=== PATIENT | female | born 1945 | race Caucasian/White ===

== ENCOUNTER 2019-07-12 00:10 | Inpatient (IN) | payer OTHER, SELFPAY ==
[~2019-07-12] VITALS: Ht 154.9 cm; Wt 103.0 kg
[2019-07-12] VITALS (22 sets, daily range): BP systolic 99–220
[~2019-07-12 00:10] MED LIST: ALBU2.5V7 INH; GLU500 PO; IBUP800T54 PO; LEVO500T20 PO; POTA8CAP20 PO; PRED20TA PO; VIT1TABL67 PO; VIT1TABL94 PO
--- NOTE | 2019-07-12 00:15 | NUR ---
Placed in room 6 . Placed on monitoring analyst, blood pressure machine and pulse oximeter. To gown for exam. Side rails up.
--- NOTE | 2019-07-12 00:19 | NUR ---
Pt placed on hall monitor. Pt states, "I can't breathe." Pt appears to be diaphoretic and confused. Pts HR is [address] Cabrera states "this is vtach." ER MD called to bedside. Pt placed on cardiac pads, crash cart at bedside. O2 administered via simple mask. Charged to 150 joules per MD order. Pt shocked. Pt converted to sinus rhythym HR at 76. Pt states she, no longer feels chest pain."
--- NOTE | 2019-07-12 00:19 | NUR ---
Note jesicaone in ED - 07/12/19 at 0048 by [email or web address] Pt placed on case monitor. Pt states, "I can't breathe." Pt appears to be diaphoretic. Pts HR is [address] Cabrera states "this is vtach." ER MD called to bedside. Pt placed on cardiac pads, crash cart at bedside. O2 administered via simple mask. Charged to 150 joules per MD order. Pt shocked. Pt converted to sinus rhythym HR at 76. Pt states she, no longer feels chest pain."
[2019-07-12] MEDS ORDERED: MIDAZOLAM HCL 5 MG/5 ML VIAL ONE (00:36)
[2019-07-12] MEDS ORDERED: ASPIRIN 325 MG TABLET PO ONE (01:00)
--- NOTE | 2019-07-12 01:00 | NUR ---
PT RESTING COMFORTABLY AT THIS TIME IN NO DISTRESS.
[2019-07-12 01:12] LABS: BASOPHILS # (AUTO) 0.1 K/uL (0.0-0.2); BASOPHILS % (AUTO) 0.9 % (0.0-2.0); EOSINOPHILS # (AUTO) 0.2 K/uL (0.0-0.4); EOSINOPHILS % (AUTO) 1.9 % (0.0-4.0); HEMATOCRIT 41.5 % (36-48); HEMOGLOBIN 13.7 g/dL (12.0-16.0); LYMPHOCYTES # (AUTO) 2.1 K/uL (1.0-5.5); LYMPHOCYTES % (AUTO) 21.9 % (20.5-51.5); MEAN CORPUSCULAR HEMOGLOBIN 28 pg (27-31); MEAN CORPUSCULAR HGB CONC 33 % (32-36); MEAN CORPUSCULAR VOLUME 86 fL (79.0-98.0); MONOCYTES # (AUTO) 0.7 K/uL (0.0-1.0); MONOCYTES % (AUTO) 6.9 % (1.7-9.3); NEUTROPHILS # (AUTO) 6.7 K/uL (1.8-7.7); NEUTROPHILS % (AUTO) 68.4 % (40.0-70.0); PLATELET COUNT (AUTO) 192 K/uL (130-430); RED BLOOD CELL COUNT(AUTO) 4.83 MIL/uL (4.2-6.2); RED CELL DISTRIBUTION WIDTH 15.4 % (9.0-15.0); WHITE BLOOD COUNT (AUTO) 9.8 K/uL (4.8-10.8)
[2019-07-12 01:16] LABS: ANION GAP 7 (5-15); CALCIUM 8.9 mg/dL (8.4-11.0); CHLORIDE 102 mmol/L (98-107); CREATININE 1.21 mg/dL (0.55-1.30); GLUCOSE 215 mg/dL (70-99); SODIUM SERUM 139 mmol/L (136-145); UREA NITROGEN, BLOOD 17 mg/dL (8-21)
[2019-07-12] MEDS ORDERED: fentaNYL CITRATE/PF 100 MCG/2 ML AMP ONE (01:16)
[2019-07-12 01:20] LABS: INR 0.9 (0.8-1.2); PROTHROMBIN TIME 9.5 SECS (9.5-12.5)
[2019-07-12 01:22] LABS: ALANINE AMINOTRANSFERASE 41 U/L (12-78); ALBUMIN 3.1 g/dL (3.4-4.8); ALCOHOL, BLOOD 4 mg/dL (<10); ASPARTATE AMINOTRANSFERASE 34 U/L (10-37); TOTAL BILIRUBIN 0.2 mg/dL (0.0-1.0)
[2019-07-12] MEDS ORDERED: fentaNYL CITRATE/PF 100 MCG/2 ML AMP IVP ONE (01:45)
[2019-07-12] MEDS ORDERED: AMIODARONE HCL 900 MG in D5W 482 ML IV ONE (01:45)
[2019-07-12] MEDS ORDERED: AMIODARONE HCL 150 MG in D5W 97 ML IV ONE (01:45)
[2019-07-12] MEDS ORDERED: AMIODARONE HCL 150 MG/3ML VIAL ONE (02:07)
[2019-07-12] MEDS ORDERED: AMIODARONE HCL 900 MG/18 ML VIAL IV ONE (02:29)
--- NOTE | 2019-07-12 02:45 | NUR ---
HINA GALDAMEZ(MANNY) CP # [phone]
[2019-07-12] MEDS ORDERED: COR3.125 PO (02:55)
[2019-07-12] MEDS ORDERED: DIF100 PO (02:55)
[2019-07-12] MEDS ORDERED: POTA10TA15 PO (02:55)
[2019-07-12] MEDS ORDERED: LISI-209 PO ×2 (02:55)
[2019-07-12] MEDS ORDERED: CEL20 PO (02:55)
--- NOTE | 2019-07-12 02:56 | NUR ---
Medication reconciliation completed with information provided by patient. Any prior medication reconciliation on file was reviewed and corrected.
--- NOTE | 2019-07-12 02:58 | NUR ---
Transfer to ICU via [facility]S protocol. Licensed nurse present. IV present no signs or symptoms of infiltration.
--- NOTE | 2019-07-12 02:58 | NUR ---
Patient will be admitted to care of DR. WONG. Admitted to ICU unit. Will go to room 5. Belongings list completed. Complete and up to date summary report printed. SBAR report to be given at bedside with opportunity for questions.
--- NOTE | 2019-07-12 03:15 | NUR ---
Received pt from ER via genny. Appear to be in no acute distress.Denies any pain nor discomfort.Routine adm care done.noted redness underneath both breast and some in the lower abd.folds.picture taken and interdry applied to affected area.
[2019-07-12] MEDS ORDERED: ALBUTEROL SULFATE 0.083% 2.5 MG/3 ML VIAL.NEB INH PRN (03:30)
[2019-07-12] MEDS ORDERED: AMIODARONE HCL 900 MG in D5W 482 ML IV SCH (03:30)
[2019-07-12] MEDS ORDERED: ACETAMINOPHEN 325 MG TABLET PO PRN (03:30)
--- NOTE | 2019-07-12 05:00 | NUR ---
dr tapia here and talked to pt.Pt remains pain-free except being hungry.Dr tapia ok'd pt to have 1/2 of a sandwitch and water then to keep her npo except meds again as ordered
[2019-07-12] MEDS: NACL 0.9% 1,000 ML IV SCH ×2 (05:27→17:25)
--- NOTE | 2019-07-12 06:00 | NUR ---
Dozing on and off.remains on amiodarone drip at 1 mg/min
--- NOTE | 2019-07-12 06:21 | NUR ---
CONSULT FOR DR. ROWE (DR. PATRICK) ORDERED BY DIALED: [phone] SPOKE TO: GUSTAVO
--- NOTE | 2019-07-12 06:50 | NUR ---
PAGED DR. NICOLAS FOR ORDERS DIALED: [phone] SPOKE TO: COOKIE
[2019-07-12 07:00] LABS: BASOPHILS # (AUTO) 0.1 K/uL (0.0-0.2); BASOPHILS % (AUTO) 0.8 % (0.0-2.0); EOSINOPHILS % (AUTO) 0.3 % (0.0-4.0); HEMOGLOBIN 13.2 g/dL (12.0-16.0); LYMPHOCYTES # (AUTO) 1.2 K/uL (1.0-5.5); MEAN CORPUSCULAR HEMOGLOBIN 28 pg (27-31); MEAN CORPUSCULAR HGB CONC 32 % (32-36); MEAN CORPUSCULAR VOLUME 86 fL (79.0-98.0); MONOCYTES # (AUTO) 0.4 K/uL (0.0-1.0); MONOCYTES % (AUTO) 3.5 % (1.7-9.3); NEUTROPHILS % (AUTO) 84.4 % (40.0-70.0); PLATELET COUNT (AUTO) 182 K/uL (130-430); RED BLOOD CELL COUNT(AUTO) 4.78 MIL/uL (4.2-6.2); RED CELL DISTRIBUTION WIDTH 15.7 % (9.0-15.0); WHITE BLOOD COUNT (AUTO) 10.6 K/uL (4.8-10.8)
[2019-07-12] MEDS ORDERED: LORazepam 2 MG/ML VIAL IVP ONE (07:15)
--- NOTE | 2019-07-12 07:15 | NUR ---
Endorsement received from night RN using SBAR.
[2019-07-12 07:20] LABS: ALANINE AMINOTRANSFERASE 56 U/L (12-78); ANION GAP 5 (5-15); ASPARTATE AMINOTRANSFERASE 42 U/L (10-37); CHLORIDE 102 mmol/L (98-107); CREATININE 0.91 mg/dL (0.55-1.30); GLUCOSE 159 mg/dL (70-99); POTASSIUM 4.4 mmol/L (3.5-5.1); SODIUM SERUM 138 mmol/L (136-145); TOTAL BILIRUBIN 0.3 mg/dL (0.0-1.0); UREA NITROGEN, BLOOD 16 mg/dL (8-21)
[2019-07-12 08:05] LABS: CHOLESTEROL 158 mg/dL (<200); HDL CHOLESTEROL 39 mg/dL (>55); LDL CHOLESTEROL 92 mg/dL (<100); TRIGLYCERIDES 161 mg/dL (30-150)
[2019-07-12] MEDS: PREDNISONE 20 MG TABLET PO SCH (08:28)
[2019-07-12] MEDS: NICOTINE 14 MG/24 HR PATCH.TD24 TD SCH (08:29)
--- NOTE | 2019-07-12 08:30 | NUR ---
Opening note Pt A/O x 4. On room air. Applied SCD's bilaterally. NS running at 75cc/hr & Amiodarone @ 1mg/min (33.33cc/hr). No complaints of pain but did express having leg cramps bilaterally. Noted urine incontinence.
[2019-07-12] MEDS ORDERED: CARVEDILOL 3.125 MG TABLET (COREG) PO SCH (09:00)
[2019-07-12] MEDS ORDERED: ASPIRIN 325 MG TABLET PO SCH (09:00)
--- NOTE | 2019-07-12 10:00 | NUR ---
Urine specimen collected.
--- NOTE | 2019-07-12 10:05 | NUR ---
Nutrition Update Dillan Scale 13 noted. Pt admitted for ventricular tachycardia. Diet: NPO BMI: 42.9 kg/m2 RD to follow per nutrition care standards.
--- NOTE | 2019-07-12 10:10 | NUR ---
CHG bath given. Changed chucks. Pt tolerated well.
[2019-07-12 10:56] LABS: BILIRUBIN,URINE NEGATIVE (NEGATIVE); BLOOD, URINE TRACE (NEGATIVE); CLARITY/URINE CLEAR (CLEAR); COLOR,URINE YELLOW (YELLOW); GLUCOSE,URINE NEGATIVE (NEGATIVE); KETONES,URINE NEGATIVE (NEGATIVE); LEUKOCYTE ESTERASE ,URINE 1+ (NEGATIVE); NITRITE, URINE NEGATIVE (NEGATIVE); PROTEIN URINE NEGATIVE (NEGATIVE); UROBILINOGEN,URINE 0.2 (0.2-1.0)
[2019-07-12 11:07] LABS: BACTERIA,URINE FEW /HPF (None Seen)
--- NOTE | 2019-07-12 11:15 | NUR ---
Page out to Dr. Middleton for orders. Spoke with andre Oliver
--- NOTE | 2019-07-12 11:54 | NUR ---
DR Middleton called back. TO received. Read back and confirmed. Ibuprofen PO 600mg Q6 PRN for pain, Morphine IVP 2 mg Q4 for pain, Magnesium PO 400mg Daily. Labs: CBC, CHEM, Mag, & TSH 07/13/19 @ 0500.
[2019-07-12] MEDS ORDERED: MORPHINE 2 MG/ML INJ. SYRINGE IVP PRN (12:00)
--- NOTE | 2019-07-12 12:06 | NUR ---
Dr Holt bedside. Orders received to monitor status and transfer to Telemetry 07/13/19 if pt is stable.
[2019-07-12] MEDS ORDERED: LISINOPRIL 5 MG TABLET PO ONE (12:15)
[2019-07-12] MEDS ORDERED: MAGNESIUM OXIDE 400 MG TABLET PO ONE (12:30)
[2019-07-12 12:54] LABS: BARBITURATE, URINE NEGATIVE (NEG <=200); BENZODIAZEPINE, URINE POSITIVE (NEG <=150); CANNABINOID, URINE NEGATIVE (NEG <=50); COCAINE, URINE NEGATIVE (NEG <=150); METHAMPHETAMINES SCREEN,URINE NEGATIVE (NEG <=500); OPIATE, URINE NEGATIVE (NEG <=100); PHENCYCLIDINE SCREEN,URINE NEGATIVE (NEG <=25); UR TRICYCLIC ANTIDEPRESSANTS NEGATIVE (NEG <=300); URINE AMPHETAMINE NEGATIVE (NEG <=500); URINE METHADONE NEGATIVE (NEG <=200); URINE OXYCODONE SCREEN NEGATIVE (NEG <=100); URINE PROPOXYPHENE SCREEN NEGATIVE (NEG <=300)
--- NOTE | 2019-07-12 13:00 | NUR ---
Pt complaining of severe leg cramps. Administered 2mg of Ativan & 600 mg of Motrin.
--- NOTE | 2019-07-12 13:00 | NUR ---
Lien bedside for ECHO. EJ @ 65%.
[2019-07-12] MEDS: IBUPROFEN 600 MG TABLET PO PRN (13:12)
--- NOTE | 2019-07-12 14:00 | NUR ---
MD ROUNDS Dr Middleton bedside. Provided status update on PT. Orders received. MD stated to not let Pt take home medication of Kenyetta's Leg Cramps With Quinine as it causes dysrhythmias and that OTC medication could have caused the V-tach earlier today. Informed PT of MD recommendations. PT acknowledged.
--- NOTE | 2019-07-12 14:15 | NUR ---
Pt daughter in main lobby. Mira Henley brought power of securities attorney paperwork to fill out with manager social services. Will endorse to night RN and Charge nurse. Paper work in pt chart with label.
[2019-07-12] MEDS: cefTRIAXone 1 GM in D5W 50 ML IV SCH (14:52)
--- NOTE | 2019-07-12 16:30 | NUR ---
Pt incontinent. Changed bedding. Noted large amount of urine in chucks.
--- NOTE | 2019-07-12 17:45 | NUR ---
Pt urinated <50mL, yellow urine. Collected in bedpan.
--- NOTE | 2019-07-12 18:00 | NUR ---
Paged MD Andrade for orders.
--- NOTE | 2019-07-12 18:20 | NUR ---
Dr Andrade called back. Orders received.
--- NOTE | 2019-07-12 19:16 | NUR ---
Endorsement provided to night RN using SBAR. Pt A/O x 4 [address] tv. Pt ate 100% of dinner. No pain indicated or discomfort. Amiodarone 0.5 mg/min, NS @ 75cc/hr. Bed locked and in lowest position with call light in place.
--- NOTE | 2019-07-12 20:00 | NUR ---
AAOX4. IN NO APPARENT DISTRESS. VSS. DENIES PAIN. ON ROOM AIR. POX 97%. BREATH SOUNDS ESSENTIALLY CLEAR. OCCASIONAL SEMI-PRODUCTIVE COUGH NOTED. ABLE TO SPIT UP EXPECTORATION. BOWEL SOUNDS (+). PULSES PALPABLE. SKIN W/D. COLOR SATISFACTORY. HOB UP TO COMFORT. SIDE RAILS UP. CALL LIGHTS WITHIN REACH. SCD'S IN PLACE.ON AMIODARONE DRIP AT 0.5 MG/MIN. SR WITH OCCASIONAL PVC'S ON THE MONITOR.
--- NOTE | 2019-07-12 21:00 | NUR ---
ACCU-CHEK 125, NO INSULIN DUE PER SLIDING SCALE COV.
[2019-07-12] MEDS: CARVEDILOL 3.125 MG TABLET (COREG) PO SCH (21:05)
[2019-07-12] MEDS: INSULIN REGULAR, HUMAN 100 UNITS/ML, 10 ML VIAL (humuLIN R) SUBCUT PRN (21:05)
--- NOTE | 2019-07-12 22:00 | NUR ---
RESTING. TALKS ON PHONE WITH FAMILY. REPOSITIONS SELF WELL.
--- NOTE | 2019-07-12 23:25 | NUR ---
DOZES ON AND OFF. TYLENOL GR 10 PO GIVEN FOR C/O HEADACHE, 5/10 IN PAIN SCALE.
[2019-07-13] VITALS (24 sets, daily range): BP systolic 131–204
--- NOTE | 2019-07-13 | NUR ---
OCCASIONAL MOIST SEMI-PRODUCTIVE COUGH NOTED, ABLE TO EXPECTORATE PHLEGM IN TISSUE. INCONTINENT OF URINE, BROOK-CARE GIVEN. TURNS SELF WELL. .
--- NOTE | 2019-07-13 02:02 | NUR ---
DR BOYKIN CALLED TO NOTIFY THAT AMIODARONE DRIP HAS BEEN 24 HRS ALREADY AND IF HE WANTS TO CONTINUE DRIP.
--- NOTE | 2019-07-13 02:02 | NUR ---
PAGED DR. ROWE () FOR ORDERS DIALED: [phone] SPOKE TO: MASSAGE THERAPIST
--- NOTE | 2019-07-13 02:30 | NUR ---
PAGED DR. ROWE () FOR ORDERS DIALED: [phone] SPOKE TO: (NO ANSWER)
--- NOTE | 2019-07-13 02:45 | NUR ---
PAGED DR. ROWE () FOR ORDERS DIALED: [phone] SPOKE TO: NO ANSWER
--- NOTE | 2019-07-13 03:21 | NUR ---
PAGED DR. ROWE () FOR ORDERS DIALED: [phone] SPOKE TO: (NO ANSWER)
--- NOTE | 2019-07-13 03:40 | NUR ---
PAGED DR. ROWE () FOR ORDERS DIALED: [phone] SPOKE TO: GUSTAVO
--- NOTE | 2019-07-13 03:50 | NUR ---
NO RETURN CALL YET FROM DR BOYKIN WHO IS HAND WOVEN CARPET AND RUG MENDER FOR DR ROWE.
[2019-07-13] MEDS ORDERED: COMMUNICATION ORDER XX ONE (04:30)
--- NOTE | 2019-07-13 04:30 | NUR ---
DR BOYKIN FINALLY RETURNED CALL, ORDERED TO CONTINUE AMIODARONE DRIP , SAND SHOVELER TO EVALUATE LATER. IMPLEMENTED.
[2019-07-13] MEDS ORDERED: AMIODARONE HCL 900 MG/18 ML VIAL IV ONE (04:46)
--- NOTE | 2019-07-13 06:00 | NUR ---
SLEPT INTERMITTENTLY. FREQUENCY OF INCONTINENCE. BROOK-CARE AND SKIN CARE RENDERED. PARTIAL LINEN CHANGE DONE. ASSISTS WITH TURNING. VAISHNAVI PROC WELL. AMIODARONE DRIP AT 0.5 MG/MIN. REMAINS IN GUARDED CONDITION.
[2019-07-13] MEDS: NACL 0.9% 1,000 ML IV SCH ×2 (06:23→17:46)
[2019-07-13 06:24] LABS: BASOPHILS # (AUTO) 0.1 K/uL (0.0-0.2); BASOPHILS % (AUTO) 0.5 % (0.0-2.0); EOSINOPHILS # (AUTO) 0.1 K/uL (0.0-0.4); EOSINOPHILS % (AUTO) 0.5 % (0.0-4.0); HEMATOCRIT 38.3 % (36-48); HEMOGLOBIN 12.5 g/dL (12.0-16.0); LYMPHOCYTES # (AUTO) 2.5 K/uL (1.0-5.5); MEAN CORPUSCULAR HEMOGLOBIN 28 pg (27-31); MEAN CORPUSCULAR HGB CONC 33 % (32-36); MEAN CORPUSCULAR VOLUME 85 fL (79.0-98.0); MONOCYTES # (AUTO) 0.7 K/uL (0.0-1.0); MONOCYTES % (AUTO) 6.5 % (1.7-9.3); NEUTROPHILS # (AUTO) 7.1 K/uL (1.8-7.7); NEUTROPHILS % (AUTO) 68.5 % (40.0-70.0); PLATELET COUNT (AUTO) 168 K/uL (130-430); RED BLOOD CELL COUNT(AUTO) 4.51 MIL/uL (4.2-6.2); RED CELL DISTRIBUTION WIDTH 15.3 % (9.0-15.0); WHITE BLOOD COUNT (AUTO) 10.4 K/uL (4.8-10.8)
[2019-07-13] MEDS: INSULIN REGULAR, HUMAN 100 UNITS/ML, 10 ML VIAL (humuLIN R) SUBCUT PRN ×2 (06:28→12:43)
--- NOTE | 2019-07-13 06:43 | NUR ---
ACCU-CHEK 124, NO INSULIN DUE PER SLIDING SCALE COV.
[2019-07-13 06:49] LABS: ALANINE AMINOTRANSFERASE 48 U/L (12-78); ALBUMIN 2.7 g/dL (3.4-4.8); ANION GAP 4 (5-15); ASPARTATE AMINOTRANSFERASE 26 U/L (10-37); CALCIUM 8.6 mg/dL (8.4-11.0); CHLORIDE 105 mmol/L (98-107); CREATININE 0.98 mg/dL (0.55-1.30); GLUCOSE 111 mg/dL (70-99); POTASSIUM 3.9 mmol/L (3.5-5.1); SODIUM SERUM 140 mmol/L (136-145); THYROID STIMULATING HORMONE 1.35 uIu/mL (0.36-3.74); TOTAL BILIRUBIN 0.3 mg/dL (0.0-1.0); UREA NITROGEN, BLOOD 11 mg/dL (8-21)
--- NOTE | 2019-07-13 07:30 | NUR ---
AM ASSESSMENT Pt received from night RN using SBAR. Pt resting in bed in lowest position with call light within reach. No complaints of pain or distress at this time. Will continue to monitor.
[2019-07-13] MEDS: MAGNESIUM OXIDE 400 MG TABLET PO SCH (08:31)
[2019-07-13] MEDS: PREDNISONE 20 MG TABLET PO SCH (08:31)
[2019-07-13] MEDS: NICOTINE 14 MG/24 HR PATCH.TD24 TD SCH (08:31)
[2019-07-13] MEDS: CARVEDILOL 3.125 MG TABLET (COREG) PO SCH (08:32)
[2019-07-13] MEDS: LISINOPRIL 5 MG TABLET PO SCH (08:32)
[2019-07-13] MEDS ORDERED: ASPIRIN 325 MG TABLET PO SCH (09:00)
--- NOTE | 2019-07-13 09:05 | NUR ---
CHG Pt provided CHG with partial linen change. Pt tolerated well.
--- NOTE | 2019-07-13 10:24 | NUR ---
CONSULTATION PAGED/CALLED Reason for Consultation: [] resp distress Person Who was Notified: [] paged Dr Ng directly Consulting Physician: [] Dr Ng, O Dev Manager Specialty: [] Pulmo Ordering Physician: [] Dr Nancy Middleton
--- NOTE | 2019-07-13 11:00 | NUR ---
HA CATH: # 16 FR Ha catheter with 10 cc bulb inserted with use of sterile technique. Bulb inflated with 10 cc sterile water. Immediate return of 250 cc clear yellow urine noted. Bedside drainage bag placed below level of bladder. Pt tolerated procedure well.
[2019-07-13] MEDS: LEVOFLOXACIN 500 MG/D5W 100 ML IV SCH (11:05)
--- NOTE | 2019-07-13 11:28 | NUR ---
Covid PCR Pt tested for COVID PCR - O.P. for transfer acceptance to [facility].
--- NOTE | 2019-07-13 11:58 | NUR ---
IV RE-INSERTION: Complaining of discomfort to IV site on left hand. Restarted on right hand #22 G. Successful after 1 attempts. Resumed current IVF of NS and regulated @ 75 cc per hour. Will observe for any signs of infiltration.
[2019-07-13] MEDS ORDERED: ASPIRIN 81 MG TAB.CHEW PO SCH (12:01)
[2019-07-13] MEDS: IBUPROFEN 600 MG TABLET PO PRN (13:14)
--- NOTE | 2019-07-13 14:13 | NUR ---
PATIENT RESTING: Patient resting quietly. No acute distress noted. Will continue to monitor pt.
[2019-07-13] MEDS: cefTRIAXone 1 GM in D5W 50 ML IV SCH (16:23)
--- NOTE | 2019-07-13 17:04 | NUR ---
MD Brown Called Dr. Holt, poke to Demetra with the exchange awaiting a call back.
--- NOTE | 2019-07-13 17:10 | NUR ---
MD Call Back Dr. Holt called back and informed that pt's daughter Mira to speak to him and get an update for planned transfer to [facility], MD provided with Mira's phone number.
[2019-07-13] MEDS ORDERED: MONTELUKAST 10 MG TABLET PO SCH (18:00)
--- NOTE | 2019-07-13 19:33 | NUR ---
Closing Notes Pt endorsed to night RN's using SBAR.
--- NOTE | 2019-07-13 19:35 | NUR ---
Opening Note Received report from AM nurse using SBAR approach.
--- NOTE | 2019-07-13 20:15 | NUR ---
AM ASSESSMENT Received patient awake. Listened to heart and lung sounds. Checked for pulses. Cowan Catheter is draining urine. Bed light in lowest position, bed alarm on, call light within reach. Safety precautions in place.
[2019-07-13] MEDS: CARVEDILOL 6.25 MG TABLET (COREG) PO SCH (21:16)
[2019-07-14] VITALS (11 sets, daily range): BP systolic 148–171
[2019-07-14 05:42] LABS: BASOPHILS # (AUTO) 0.1 K/uL (0.0-0.2); EOSINOPHILS # (AUTO) 0.1 K/uL (0.0-0.4); EOSINOPHILS % (AUTO) 0.5 % (0.0-4.0); HEMATOCRIT 38.6 % (36-48); HEMOGLOBIN 12.7 g/dL (12.0-16.0); LYMPHOCYTES # (AUTO) 2.6 K/uL (1.0-5.5); MEAN CORPUSCULAR HEMOGLOBIN 28 pg (27-31); MEAN CORPUSCULAR HGB CONC 33 % (32-36); MEAN CORPUSCULAR VOLUME 84 fL (79.0-98.0); MONOCYTES # (AUTO) 0.8 K/uL (0.0-1.0); MONOCYTES % (AUTO) 7.5 % (1.7-9.3); NEUTROPHILS # (AUTO) 6.8 K/uL (1.8-7.7); PLATELET COUNT (AUTO) 183 K/uL (130-430); RED BLOOD CELL COUNT(AUTO) 4.58 MIL/uL (4.2-6.2); RED CELL DISTRIBUTION WIDTH 15.5 % (9.0-15.0); WHITE BLOOD COUNT (AUTO) 10.3 K/uL (4.8-10.8)
[2019-07-14 05:55] LABS: ALANINE AMINOTRANSFERASE 42 U/L (12-78); ALBUMIN 2.7 g/dL (3.4-4.8); ANION GAP 4 (5-15); ASPARTATE AMINOTRANSFERASE 20 U/L (10-37); CALCIUM 8.2 mg/dL (8.4-11.0); CHLORIDE 105 mmol/L (98-107); CREATININE 1.02 mg/dL (0.55-1.30); GLUCOSE 129 mg/dL (70-99); POTASSIUM 3.7 mmol/L (3.5-5.1); SODIUM SERUM 140 mmol/L (136-145); TOTAL BILIRUBIN 0.3 mg/dL (0.0-1.0); UREA NITROGEN, BLOOD 13 mg/dL (8-21)
[2019-07-14] MEDS: IBUPROFEN 600 MG TABLET PO PRN (06:21)
[2019-07-14] MEDS ORDERED: IBUPROFEN 600 MG TABLET ONE (06:32)
--- NOTE | 2019-07-14 07:10 | NUR ---
Closing Note Endorsed report to AM nurse using SBAR approach.
--- NOTE | 2019-07-14 07:15 | NUR ---
Received report on pt to assume care. Pt alert and oriented and denies chest pain. SR on monitor.
[2019-07-14] MEDS ORDERED: IPRATROPIUM/ALBUTEROL SULFATE 3 ML AMPUL.NEB (DUONEB) INH PRN (07:30)
[2019-07-14] MEDS ORDERED: BUDESONIDE 0.5 MG/2 ML AMPUL.NEB INH SCH (07:30)
--- NOTE | 2019-07-14 08:00 | NUR ---
Pt sitting up in bed for breakfast. Denies chest pain and SR on monitor. Pt has a productive cough, yellow sputum. She states she has this all the time from smoking. Cowan cath with pink urine in bag. Dr. Ng in to see pt and IV changed to saline lock.
[2019-07-14] MEDS: LEVOFLOXACIN 500 MG/D5W 100 ML IV SCH (08:40)
[2019-07-14] MEDS: MAGNESIUM OXIDE 400 MG TABLET PO SCH (08:40)
[2019-07-14] MEDS: NICOTINE 14 MG/24 HR PATCH.TD24 TD SCH (08:40)
[2019-07-14] MEDS: LISINOPRIL 5 MG TABLET PO SCH (08:41)
[2019-07-14] MEDS: PREDNISONE 20 MG TABLET PO SCH (08:45)
[2019-07-14] MEDS: CARVEDILOL 6.25 MG TABLET (COREG) PO SCH (08:46)
--- NOTE | 2019-07-14 10:55 | NUR ---
HCP CM Called [facility] HCP CHARIS to notify her that the ambulance was running late.
--- NOTE | 2019-07-14 11:05 | NUR ---
HCP CM Called HCP CM back to inquire about ambulance. She said they had just arrived.
--- NOTE | 2019-07-14 11:20 | NUR ---
Ambulance arrived to sampler pickup pt. Report called to [facility] spoke with Nelida on the DL unit. Pt transfered via [facility] ambulance with belongings.
== END 2019-07-14 11:48 | disposition short-term general hospital (02) | DRG 308 ==
LOC: SED 00:10 → EEVIPCON 01:44 → SIC 01:44
PROVIDERS: ADMIT Internal Medicine Hospice and Palliative Medicine; ATTEND Internal Medicine Hospice and Palliative Medicine
DX: I47.2 Ventricular tachycardia (principal); E43 Unspecified severe protein-calorie malnutrition; N17.9 Acute kidney failure, unspecified; N39.0 Urinary tract infection, site not specified; Z68.41 Body mass index [BMI] 40.0-44.9, adult; I50.22 Chronic systolic (congestive) heart failure; G47.33 Obstructive sleep apnea (adult) (pediatric); E66.9 Obesity, unspecified; E11.9 Type 2 diabetes mellitus without complications; G25.81 Restless legs syndrome; I11.0 Hypertensive heart disease with heart failure; I35.0 Nonrheumatic aortic (valve) stenosis; I49.8 Other specified cardiac arrhythmias; F17.210 Nicotine dependence, cigarettes, uncomplicated; J44.9 Chronic obstructive pulmonary disease, unspecified; Z95.2 Presence of prosthetic heart valve; Z79.899 Other long term (current) drug therapy; Z79.82 Long term (current) use of aspirin
CPT/HCPCS: 36415; 71045; 80053; 80061; 80307; 81000-TC; 82550-TC; 82962; 83036; 83735-TC; 83880; 84443-TC; 84484; 85025; 85610-TC; 85730-TC; 87081; 93005; 93306; 94640; 96374; 96375; 99285; G0482; J0282; J0696; J1815; J1956; J2060; J2250; J2270; J3010; J7030; J7060; J7512; J7613; U0002; U0003-CS

== ENCOUNTER 2021-03-03 21:58 | Emergency (ER) | payer OTHER, SELFPAY ==
[~2021-03-03] VITALS: Ht 157.5 cm; Wt 102.1 kg
[~2021-03-03 21:58] MED LIST changes: +AMIO200T66 PO; +CARV6.2554 PO; +CEL20 PO; -IBUP800T54 PO; -LEVO500T20 PO; +LISI-209 PO; -PRED20TA PO; +SPIR25TA6 PO; -VIT1TABL94 PO
[2021-03-03 22:50] VITALS: BP_SYST 113
--- NOTE | 2021-03-03 22:50 | NUR ---
Patient triaged and placed in TENT VSS and patient appears in no acute distress at this time. Accompanied by DAUGHTER , awaiting available bed, and MD notified of need for MSE.
--- NOTE | 2021-03-03 23:50 | NUR ---
PATIENT AAOX4 AND AMBULATORY FROM HOME C/O WORSENING PRODUCTIVE COUGH THAT MAKES IT HARDER FOR HER TO CATCH HER BREATH AFTER COUGHING. DENIES ANY SOB OR CHEST PAIN, N/V/D. EXPOSED TO POSITIVE COVID DAUGHTER ON THE . VSS. OXYGENATION AT 95% ON ROOM AIR. +SMOKING. HISTORY OF COPD, DM, HTN, PACEMAKER, AORTIC VALVE REPLACEMENT.
--- NOTE | 2021-03-04 01:59 | NUR ---
DR. DUMAS AT BEDSIDE FOR EVALUATION.
[2021-03-04] MEDS ORDERED: IPRATROPIUM BROM 0.5 MG/2.5 ML VIAL.NEB (ATROVENT) INH ONE (02:00)
[2021-03-04] MEDS ORDERED: LevALBUTEROL HCL 1.25 MG/0.5 ML *CONC.* VIAL.NEB (XOPENEX CONC.) INH ONE (02:00)
--- NOTE | 2021-03-04 02:10 | NUR ---
RT AT BEDSIDE GIVING BREATHING TX ORDERED.
[2021-03-04] MEDS ORDERED: ZIT250 PO (02:39)
[2021-03-04] MEDS ORDERED: ALBU2.5V7 INH (02:39)
[2021-03-04] MEDS ORDERED: ALBMDI INH (02:39)
[2021-03-04 02:58] VITALS: BP_SYST 113
--- NOTE | 2021-03-04 04:09 | NUR ---
Patient given written and verbal discharge instructions and verbalizes understanding. DR. PITER CONKLIN MD discussed with patient the results and treatment provided. Patient in stable condition. ID arm band removed. Rx of ZITHROMAX, VENTOLIN, ALBUTEROL given. Patient educated on pain management and to follow up with PMD. Pain Scale . Opportunity for questions provided and answered. Medication side effect fact sheet provided.
== END 2021-03-04 02:58 | disposition home or self-care (01) ==
LOC: SED 21:58
DX: U07.1 COVID-19 (principal); J44.1 Chronic obstructive pulmonary disease with (acute) exacerbation; I10 Essential (primary) hypertension; E11.9 Type 2 diabetes mellitus without complications
CPT/HCPCS: 36415; 87426; 99283; J7612